=== PATIENT | female | born 1965 | race Caucasian/White ===

== ENCOUNTER 2024-12-19 13:29 | Outpatient (CLI) | payer OTHER, SELFPAY | END 2024-12-19 13:30 | disposition home or self-care (01) | LOC: ANHAUDIO 13:30 | PROVIDERS: PCP Physician Assistant; Visit Provider Emergency Medicine | DX: H90.3 Sensorineural hearing loss, bilateral (principal); H93.13 Tinnitus, bilateral; S99.922A Unspecified injury of left foot, initial encounter; X58.XXXA Exposure to other specified factors, initial encounter | CPT/HCPCS: 92557; 92567 ==